=== PATIENT | male | born 1965 | race Caucasian/White ===

== ENCOUNTER 2019-01-02 09:23 | Emergency (ER) | payer MEDICARE ==
[2019-01-02] MEDS ORDERED: KETOROLAC TROMETHAMINE INJ/PF 30 MG/1 ML SDV IM ONE (10:15)
--- NOTE | 2019-01-02 10:19 | ER Document Report ---
ED Neck/Back Problem - General Chief Complaint: Back Pain Stated Complaint: BACK PAIN Time Seen by Provider: 01/02/19 10:00 Mode of Arrival: Ambulatory Information source: Patient - HPI Patient complains to provider of: Pain, Lower back Notes: Patient is here with complaints of trouble having a bowel movement and back pain. Patient states he was unable to have a bowel movement for the last 3 days. He talked 1 of his nurse friend who told him to do some suppositories which he did he also took some oral laxatives and states that he had watery stool after that. He denies any abdominal pain. He does complain of some occasional abdominal bloating when he eats. No nausea or vomiting. No fever. For the last 2 days is also been having some right low back pain. Pain is worse with movement. No trauma or injury. No other bowel or bladder dysfunction. No fever. No blood thinners. No IV drug use. No numbness, tingling, weakness. Has had his gallbladder removed, no other abdominal surgeries. No history of bowel obstruction. States that it is not uncommon for him to be constipated and not have normal bowel movements. Patient denies any chest pain or shortness of breath. No rash. Pain in his back is mild, constant, worse with movement, better with rest. He denies any other complaints at this time. - Related Data Allergies/Adverse Reactions: azithromycin [Azithromycin] Adverse Reaction (Verified 01/02/19 09:25) Nausea dicyclomine HCl [From Bentyl] Adverse Reaction (Verified 01/02/19 09:25) Past Medical History - Social History Smoking Status: Current Every Day Smoker Family History: Reviewed & Not Pertinent Patient has suicidal ideation: No Patient has homicidal ideation: No - Past Medical History Cardiac Medical History: Reports: Hx Hypercholesterolemia, Hx Hypertension Denies: Hx Heart Attack Pulmonary Medical History: Reports: Hx Asthma, Hx COPD Neurological Medical History: Reports: Hx Migraine. Denies: Hx Cerebrovascular Accident, Hx Seizures Renal/ Medical History: Reports: Hx Kidney Stones. Denies: Hx Peritoneal Dialysis GI Medical History: Reports: Hx Gastroesophageal Reflux Disease. Denies: Hx Hepatitis, Hx Hiatal Hernia, Hx Ulcer Psychiatric Medical History: Reports: Hx Anxiety, Hx Bipolar Disorder, Hx Depression Infectious Medical History: Denies: Hx Hepatitis Past Surgical History: Reports: Hx Cholecystectomy, Hx Kidney (Renal Surgery) - kidney stones removed. Denies: Hx Open Heart Surgery, Hx Pacemaker - Immunizations Hx Diphtheria, Pertussis, Tetanus Vaccination: Yes Review of Systems - Review of Systems -: Yes All other systems reviewed and negative Physical Exam - Vital signs Vitals: Temp Pulse Resp BP Pulse Ox 98.2 F 83 16 152/89 H 96 01/02/19 09:30 01/02/19 09:30 01/02/19 09:30 01/02/19 09:30 01/02/19 09:30 - Notes Notes: GENERAL: alert, cooperative, nontoxic, no distress. HEAD: normocephalic, atraumatic EYES: conjunctiva pink without discharge, no external redness or swelling. EARS: no external swelling, no external redness NOSE: atraumatic, no external swelling MOUTH/THROAT: mucous membranes moist and pink, posterior pharynx without erythema, swelling, exudate. No trismus or drooling. NECK: soft, supple, full range of motion, no meningismus. CHEST: no distress, lungs clear and equal throughout. No wheezing, rales, rhonchi. CARDIAC: regular rate and rhythm, no murmur, normal capillary refill, normal pulses. No peripheral edema noted. ABDOMEN: Soft, nontender. No rebound tenderness or guarding. No mass. RECTAL: No external lesions. No mass. Normal rectal tone. No fecal impaction identified. Light brown stool noted. No gross blood. BACK: full range of motion, no CVA tenderness. Mild tenderness to palpation of the right low back, lumbar paraspinal muscles, SI joint. EXTREMITIES: full range of motion of all extremities. No redness, no swelling. NEURO: alert and oriented x 3, no focal deficits, full range of motion of all extremities. PYSCH: appropriate mood, affect. Patient is cooperative. SKIN: pink, warm, dry, no rash. Course - Re-evaluation Re-evalutation: 01/02/19 12:49 Patient is nontoxic-appearing with stable vitals. Patient here with complaints of some right low back pain and constipation. No abdominal tenderness on exam, no vomiting. X-ray shows no signs of bowel obstruction. Rectal exam shows no fecal impaction. Patient has some right-sided low back tenderness on exam is worse with movement. No sign risk of cauda equina, epidural abscess/bleed, discitis, osteomyelitis or AAA. Pain most likely muscular skeletal strain in nature. Patient will be discharged home with a prescription for Naprosyn for his back pain dose of mag citrate and MiraLAX for his constipation. Instructions to follow-up with his primary care doctor at the next available appointment. Follow-up sooner for any worsening pain, fever, difficulty controlling bowels or bladder, persistent vomiting, severe abdominal pain, or for any further concerns. The patient's emergency department workup and current diagnosis were explained to the patient and or family. Follow-up instructions were provided. Medications if prescribed were discussed. Instructions for when to return to the emergency department including specific worrisome symptoms were discussed with the patient and/or family. - Vital Signs Vital signs: Temp Pulse Resp BP Pulse Ox 98.2 F 83 16 152/89 H 96 01/02/19 09:30 01/02/19 09:30 01/02/19 09:30 01/02/19 09:30 01/02/19 09:30 - Diagnostic Test Radiology reviewed: Image reviewed, Reports reviewed - Acute abdominal series with no acute findings. Discharge - Discharge Clinical Impression: Constipation Qualifiers: Constipation type: unspecified constipation type Qualified Code(s): K59.00 - Constipation, unspecified Low back pain Qualifiers: Chronicity: acute Back pain laterality: right Sciatica presence: without sciatica Qualified Code(s): M54.5 - Low back pain Condition: Stable Disposition: HOME, SELF-CARE Instructions: Low Back Pain ([facility]), Constipation ([facility]) Additional Instructions: Take medications as prescribed. Drink plenty fluids. Follow-up with your doctor at the next available appointment for reevaluation. Follow-up sooner for any worsening pain, high fever, abdominal pain, persistent vomiting, numbness, [place], weakness, difficulty controlling bowels or bladder, or for any further concerns. Prescriptions: Magnesium Citrate [Citrate of Magnesia 296 ml Bottle] 296 ml PO DAILY #1 bottle Naproxen [Naprosyn] 500 mg PO BID #20 tablet Polyethylene Glycol 3350 [Miralax] 1 cap PO DAILY #1 bottle Forms: Elevated Blood Pressure, Smoking Cessation Education Referrals: [facility] [Provider Group] - Follow up as needed
[2019-01-02 10:52] LABS: APPEARANCE,URINE CLEAR; BILIRUBIN,URINE NEGATIVE (NEGATIVE); COLOR,URINE YELLOW; GLUCOSE, URINE NEGATIVE (NEGATIVE); KETONES,URINE NEGATIVE (NEGATIVE); LEUKOCYTE ESTERASE,URINE NEGATIVE (NEGATIVE); NITRITE,URINE NEGATIVE (NEGATIVE); PROTEIN,URINE NEGATIVE (NEGATIVE); URINE SPECIFIC GRAVITY 1.005; UROBILINOGEN,URINE NEGATIVE mg/dL (<2.0)
--- NOTE | 2019-01-02 12:21 | RADIOLOGY REPORT (SQ) ---
EXAM DESCRIPTION: ACUTE ABDOMEN SERIES COMPLETED DATE/TIME: 01/02/2019 11:54 am REASON FOR STUDY: CONSTIPATION COMPARISON: None. NUMBER OF VIEWS: Three views. TECHNIQUE: PA chest, supine abdomen and upright/decubitus abdomen radiographic images acquired. LIMITATIONS: None. FINDINGS: CHEST: Lungs clear of infiltrates. FREE AIR: None. No abnormal gas collections. BOWEL GAS PATTERN: Scattered small bowel loops with air fluid levels. No distended large or small bow el loops. CALCIFICATIONS: No suspicious calcifications. HARDWARE: Cholecystectomy clips. SOFT TISSUES: No gross mass or suggestion of organomegaly. BONES: No acute fracture. No worrisome bone lesions. OTHER: No other significant finding. IMPRESSION: NONSPECIFIC BOWEL GAS PATTERN. Scattered small bowel loops with air fluid levels. No di stended large or small bowel loops.. TECHNICAL DOCUMENTATION: JOB ID: [id number] [id number] 2010 [employer]- All Rights Reserved Reading location - IP/workstation name: [email or web address]
[2019-01-02 13:08] VITALS: BP 142/96
== END 2019-01-02 13:09 | disposition home or self-care (01) ==
LOC: ER 09:23
DX: M54.5 Low back pain (principal); K59.00 Constipation, unspecified; F17.200 Nicotine dependence, unspecified, uncomplicated; E78.00 Pure hypercholesterolemia, unspecified; I10 Essential (primary) hypertension; J44.9 Chronic obstructive pulmonary disease, unspecified; Z88.3 Allergy status to other anti-infective agents; Z87.442 Personal history of urinary calculi; Z90.49 Acquired absence of other specified parts of digestive tract
CPT/HCPCS: 99283; 96372; 81001; 74022; J1885